=== PATIENT | female | born 1940 | race African-American/Black ===

== ENCOUNTER 2022-01-06 08:50 | Inpatient (IN) | payer MEDICARE ==
[~2022-01-06] VITALS: Ht 160 cm; Wt 67.1 kg
[2022-01-06 09:42] LABS: BASOPHILS % 0.7 % (0.0-2.0); EOSINOPHILS % 0.3 % (0.0-5.0); HEMOGLOBIN. 13.8 g/dL (12.0-16.0); MEAN CORPUSCULAR HEMOGLOBIN 27.9 pg (28.0-32.0); MEAN CORPUSCULAR VOLUME 83.1 fL (81.0-99.0); MEAN PLATELET VOLUME 8.7 fl (7.4-10.4); MONOCYTES % 8.9 % (2.0-8.0); NEUTROPHILS % 82.1 % (40.0-76.0); PLATELET 214 x1000/uL (130-400); RED BLOOD CELL COUNT 4.94 mill/uL (4.2-5.4); RED CELL DISTRIBUTION WIDTH 14.4 % (11.6-14.6)
[2022-01-06 09:48] LABS: CHLORIDE 105 mEq/L (98-107)
[2022-01-06] MEDS ORDERED: LABETALOL 5MG/ML SYR 20 MG/4 ML SYRINGE IV ONE ×2 (11:00→11:45)
[2022-01-06] MEDS ORDERED: HYDRALAZINE 20MG/ML VIAL IV NR (15:15)
[2022-01-06] MEDS ORDERED: ONDANSETRON HCL 4MG/2ML INJ IV PRN ×2 (15:15)
[2022-01-06] MEDS ORDERED: HYDRALAZINE 20MG/ML VIAL IV ONE (15:15)
[2022-01-06] MEDS: AMLODIPINE 10MG TABLET PO SCH (15:38)
[2022-01-06] MEDS ORDERED: CLONIDINE 0.1MG TABLET PO PRN (16:30)
[2022-01-06 17:30] VITALS: BP 186/80
[2022-01-06 20:00] VITALS: BP_SYST 157; BP_SYST 186; BP_DIAS 62; BP_DIAS 80
[2022-01-06] MEDS: CLONIDINE 0.1MG TABLET PO NR (20:46)
[2022-01-07] VITALS: BP 156/59
[2022-01-07] MEDS: CLONIDINE 0.2MG TABLET PO SCH ×3 (02:54→17:00)
[2022-01-07 04:00] VITALS: BP 185/66
[2022-01-07 08:00] VITALS: BP 137/67
[2022-01-07 08:15] LABS: BASOPHILS % 0.7 % (0.0-2.0); EOSINOPHILS % 0.5 % (0.0-5.0); HEMATOCRIT. 37.7 % (36.0-48.0); HEMOGLOBIN. 12.6 g/dL (12.0-16.0); LYMPHOCYTES % 8.3 % (20.0-50.0); MEAN CORPUSCULAR HEMOGLOBIN 27.6 pg (28.0-32.0); MEAN CORPUSCULAR VOLUME 82.5 fL (81.0-99.0); MEAN PLATELET VOLUME 9.3 fl (7.4-10.4); MONOCYTES % 10.4 % (2.0-8.0); NEUTROPHILS % 80.1 % (40.0-76.0); PLATELET 215 x1000/uL (130-400); RED BLOOD CELL COUNT 4.57 mill/uL (4.2-5.4); RED CELL DISTRIBUTION WIDTH 14.5 % (11.6-14.6)
[2022-01-07] MEDS: AMLODIPINE 10MG TABLET PO SCH ×2 (09:46→21:36)
[2022-01-07 12:00] VITALS: BP 138/51
[2022-01-07 16:00] VITALS: BP 110/56
[2022-01-07] MEDS: ASPIRIN 81MG EC TABLET PO SCH (17:29)
[2022-01-07 20:00] VITALS: BP 129/53
[2022-01-07] MEDS: ATORVASTATIN CALCIUM 10MG TABLET PO SCH (21:35)
[2022-01-07] MEDS: CLONIDINE 0.1MG TABLET PO NR (21:36)
[2022-01-08] VITALS: BP 114/72
[2022-01-08 04:00] VITALS: BP 113/66
[2022-01-08 08:00] VITALS: BP 163/61
[2022-01-08 08:06] LABS: EOSINOPHILS % 0.7 % (0.0-5.0); HEMATOCRIT. 39.5 % (36.0-48.0); HEMOGLOBIN. 13.2 g/dL (12.0-16.0); LYMPHOCYTES % 13.9 % (20.0-50.0); MEAN CORPUSCULAR HEMOGLOBIN 27.2 pg (28.0-32.0); MEAN CORPUSCULAR VOLUME 81.6 fL (81.0-99.0); MEAN PLATELET VOLUME 10.2 fl (7.4-10.4); MONOCYTES % 11.1 % (2.0-8.0); NEUTROPHILS % 73.3 % (40.0-76.0); PLATELET 230 x1000/uL (130-400); RED BLOOD CELL COUNT 4.85 mill/uL (4.2-5.4); RED CELL DISTRIBUTION WIDTH 14.5 % (11.6-14.6)
[2022-01-08] MEDS: CLONIDINE 0.2MG TABLET PO SCH (08:29)
[2022-01-08] MEDS: ASPIRIN 81MG EC TABLET PO SCH (08:29)
[2022-01-08] MEDS: AMLODIPINE 10MG TABLET PO SCH ×2 (08:30→21:15)
[2022-01-08] MEDS: ACETAMINOPHEN 325MG TABLET PO PRN (08:38)
[2022-01-08 12:00] VITALS: BP 119/51
[2022-01-08] MEDS: HYDRALAZINE HCL 50MG TABLET PO SCH ×2 (14:53→21:15)
[2022-01-08 16:00] VITALS: BP 135/55
[2022-01-08 16:33] LABS: CLARITY URINE TURBID (CLEAR); COLOR URINE DARK YELLOW (YELLOW); KETONES URINE NEGATIVE (NEGATIVE); LEUKOCYTE ESTERASE URINE 2+ (NEGATIVE); NITRITE URINE NEGATIVE (NEGATIVE); OCCULT BLOOD URINE 2+ (NEGATIVE); PH URINE 5.5 (4.5-8.0); PROTEIN URINE TRACE (NEGATIVE); SPECIFIC GRAVITY URINE 1.025 (1.005-1.030)
[2022-01-08] MEDS: CLONIDINE 0.1MG TABLET PO SCH ×2 (18:05→23:11)
[2022-01-08] MEDS ORDERED: ASPI-1497 MT (19:12)
[2022-01-08] MEDS ORDERED: CARV6.2548 MT (19:12)
[2022-01-08] MEDS ORDERED: LOSA100T32 MT (19:15)
[2022-01-08 20:00] VITALS: BP 156/57
[2022-01-08] MEDS: ATORVASTATIN CALCIUM 10MG TABLET PO SCH (21:15)
[2022-01-09] VITALS (8 sets, daily range): BP systolic 137–220; BP diastolic 54–78
[2022-01-09] MEDS: HYDRALAZINE HCL 50MG TABLET PO SCH ×3 (04:59→21:51)
[2022-01-09 07:38] LABS: BASOPHILS % 0.6 % (0.0-2.0); EOSINOPHILS % 0.9 % (0.0-5.0); HEMATOCRIT. 40.5 % (36.0-48.0); HEMOGLOBIN. 13.7 g/dL (12.0-16.0); LYMPHOCYTES % 13.4 % (20.0-50.0); MEAN CORPUSCULAR HEMOGLOBIN 27.7 pg (28.0-32.0); MEAN CORPUSCULAR VOLUME 82.1 fL (81.0-99.0); MEAN PLATELET VOLUME 10.2 fl (7.4-10.4); NEUTROPHILS % 75.1 % (40.0-76.0); PLATELET 184 x1000/uL (130-400); RED BLOOD CELL COUNT 4.93 mill/uL (4.2-5.4); RED CELL DISTRIBUTION WIDTH 14.3 % (11.6-14.6)
[2022-01-09] MEDS: CLONIDINE 0.1MG TABLET PO SCH ×2 (09:12→17:00)
[2022-01-09] MEDS: ASPIRIN 81MG EC TABLET PO SCH (09:12)
[2022-01-09] MEDS: AMLODIPINE 10MG TABLET PO SCH ×2 (09:13→21:51)
[2022-01-09] MEDS: ATORVASTATIN CALCIUM 10MG TABLET PO SCH (21:51)
[2022-01-09] MEDS ORDERED: ZOLPIDEM TARTRATE 5MG TABLET PO PRN (22:15)
[2022-01-10] VITALS (7 sets, daily range): BP systolic 120–182; BP diastolic 48–79
[2022-01-10] MEDS: CLONIDINE 0.1MG TABLET PO SCH ×3 (00:05→17:41)
[2022-01-10] MEDS: HYDRALAZINE HCL 50MG TABLET PO SCH ×2 (05:08→14:14)
[2022-01-10] MEDS: AMLODIPINE 10MG TABLET PO SCH ×2 (09:25→22:00)
[2022-01-10] MEDS: ASPIRIN 81MG EC TABLET PO SCH (09:26)
[2022-01-10] MEDS: ACETAMINOPHEN 325MG TABLET PO PRN (09:26)
[2022-01-10 13:17] LABS: CLARITY URINE CLEAR (CLEAR); COLOR URINE YELLOW (YELLOW); KETONES URINE NEGATIVE (NEGATIVE); LEUKOCYTE ESTERASE URINE TRACE (NEGATIVE); NITRITE URINE NEGATIVE (NEGATIVE); OCCULT BLOOD URINE NEGATIVE (NEGATIVE); PROTEIN URINE NEGATIVE (NEGATIVE); SPECIFIC GRAVITY URINE 1.018 (1.005-1.030)
[2022-01-10] MEDS: LOSARTAN POTASSIUM 25 MG TABLET PO SCH ×2 (15:30→22:00)
[2022-01-10 16:09] LABS: BASOPHILS % 0.7 % (0.0-2.0); EOSINOPHILS % 0.9 % (0.0-5.0); HEMATOCRIT. 43.3 % (36.0-48.0); LYMPHOCYTES % 7.6 % (20.0-50.0); MEAN CORPUSCULAR VOLUME 83.3 fL (81.0-99.0); MEAN PLATELET VOLUME 9.4 fl (7.4-10.4); MONOCYTES % 10.2 % (2.0-8.0); NEUTROPHILS % 80.6 % (40.0-76.0); PLATELET 263 x1000/uL (130-400); RED CELL DISTRIBUTION WIDTH 14.6 % (11.6-14.6)
[2022-01-10] MEDS: ATORVASTATIN CALCIUM 10MG TABLET PO SCH (21:59)
[2022-01-10] MEDS: HYDRALAZINE HCL 100MG TABLET PO SCH (22:00)
[2022-01-11] VITALS: BP_SYST 132; BP_SYST 140; BP_DIAS 50
[2022-01-11] MEDS: CLONIDINE 0.1MG TABLET PO SCH ×3 (01:09→19:06)
[2022-01-11 04:00] VITALS: BP 158/55
[2022-01-11] MEDS: HYDRALAZINE HCL 100MG TABLET PO SCH ×2 (05:41→14:00)
[2022-01-11 06:17] LABS: BASOPHILS % 0.5 % (0.0-2.0); EOSINOPHILS % 0.7 % (0.0-5.0); HEMATOCRIT. 42.6 % (36.0-48.0); HEMOGLOBIN. 14.3 g/dL (12.0-16.0); LYMPHOCYTES % 8.3 % (20.0-50.0); MEAN CORPUSCULAR HEMOGLOBIN 27.7 pg (28.0-32.0); MEAN CORPUSCULAR VOLUME 82.7 fL (81.0-99.0); MEAN PLATELET VOLUME 9.4 fl (7.4-10.4); MONOCYTES % 8.5 % (2.0-8.0); PLATELET 222 x1000/uL (130-400); RED BLOOD CELL COUNT 5.15 mill/uL (4.2-5.4); RED CELL DISTRIBUTION WIDTH 14.5 % (11.6-14.6)
[2022-01-11 08:00] VITALS: BP_SYST 103; BP_SYST 121; BP_SYST 131; BP_DIAS 58; BP_DIAS 59; BP_DIAS 74
[2022-01-11 08:50] LABS: CHLORIDE 105 mEq/L (98-107)
[2022-01-11 08:57] LABS: FOLIC ACID (FOLATE) SERUM 7.4 ng/mL (>5.38)
[2022-01-11] MEDS: ASPIRIN 81MG EC TABLET PO SCH (10:02)
[2022-01-11] MEDS: LOSARTAN POTASSIUM 25 MG TABLET PO SCH (10:02)
[2022-01-11] MEDS: AMLODIPINE 10MG TABLET PO SCH (10:03)
[2022-01-11 12:00] VITALS: BP 128/42
[2022-01-16 17:06] LABS: 25-HYDROXY VITAMIN D3 23 ng/mL (.)
== END 2022-01-11 19:51 | DRG 74 ==
LOC: ER 08:50 → 8WST 13:15 → EDBEDREQ 13:19
PROVIDERS: ADMIT Internal Medicine Nephrology; ATTEND Internal Medicine Nephrology
DX: G90.8 Other disorders of autonomic nervous system (principal); I16.1 Hypertensive emergency; I95.1 Orthostatic hypotension; E78.00 Pure hypercholesterolemia, unspecified; E78.5 Hyperlipidemia, unspecified; I11.9 Hypertensive heart disease without heart failure; R00.1 Bradycardia, unspecified; R26.9 Unspecified abnormalities of gait and mobility; S09.90XA Unspecified injury of head, initial encounter; W18.39XA Other fall on same level, initial encounter; Y93.89 Activity, other specified; Y92.89 Other specified places as the place of occurrence of the external cause; Y99.8 Other external cause status; Z79.899 Other long term (current) drug therapy; Z86.73 Personal history of transient ischemic attack (TIA), and cerebral infarction without residual deficits; Z87.891 Personal history of nicotine dependence; Z85.9 Personal history of malignant neoplasm, unspecified; Z88.5 Allergy status to narcotic agent; Z79.82 Long term (current) use of aspirin; I10 Essential (primary) hypertension; R53.81 Other malaise
CPT/HCPCS: 36415; 70551; 71045; 80048; 80053; 80061; 81003; 82140; 82306; 82607; 82728; 82746; 83036; 83735; 83880; 84443; 84484; 85025; 85379; 93005; 93306; 93880; 93970; 97162; 97166; 99291; C1893; J0360; J2405; J3490